=== PATIENT | female | born 1965 | race African-American/Black ===

== ENCOUNTER 2018-10-25 10:33 | Emergency (ER) | payer SELFPAY ==
[~2018-10-25] VITALS: Ht 172.7 cm; Wt 77.1 kg
[2018-10-25 10:42] VITALS: BP 177/105
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
[2018-10-25 11:18] VITALS: BP 158/98
== END 2018-10-25 11:18 | disposition home or self-care (01) ==
LOC: MED 10:33
DX: M54.2 Cervicalgia (principal); G89.29 Other chronic pain; I10 Essential (primary) hypertension; F17.200 Nicotine dependence, unspecified, uncomplicated; Z88.5 Allergy status to narcotic agent; Z90.710 Acquired absence of both cervix and uterus
CPT/HCPCS: 99283